=== PATIENT | male | born 1970 | race Caucasian/White ===

== ENCOUNTER 2021-04-01 10:30 | Day surgery (SDC) | payer OTHER ==
[~2021-04-01] VITALS: Ht 182.9 cm; Wt 127.5 kg
[2021-04-01 12:23] VITALS: BP 119/83; PULSE 77; TEMP 97.7
[2021-04-01] MEDS ORDERED: NORCO 325 MG-51 TAB PO (13:53)
[2021-04-01 14:35] VITALS: BP 118/78; PULSE 58; TEMP 97
[2021-04-01 14:50] VITALS: BP 121/81; PULSE 60
[2021-04-01 15:05] VITALS: BP 131/85; PULSE 61
--- NOTE | 2021-04-01 15:56 | NUR ---
1435 Pt returns via cart and RN assist to [facility]. Pt alert and oriented. Monitors on and alarms set. Call light within reach. Report received from MOHAN Sharp. Operative sites are clean and dry. Pt requests water and toast. Pt denies any pain or nausea. 1450 Pt taking food and drink well. No complications noted. 1515 Discharge instructions given to pt. All questions answered to pt and 's satisfaction. Handed to a thank you card and discharge information. Pt up to bathroom, able to void without difficulty. IV removed without complication. 1542 Pt transferred out of the hospital via wheelchair and RN assist, to private vehicle driven by .
== END 2021-04-01 15:42 | disposition home or self-care (01) ==
LOC: SDCO 10:30
DX: K40.90 Unilateral inguinal hernia, without obstruction or gangrene, not specified as recurrent (principal)
CPT/HCPCS: C1781; J7120